=== PATIENT | female | born 1940 | race Caucasian/White ===

== ENCOUNTER 2018-12-15 07:50 | Day surgery (SDC) | payer OTHER ==
[2018-12-15] MEDS ORDERED: LIDOCAINE 2% MPF 5 ML VIAL ONE (08:27)
[2018-12-15] MEDS ORDERED: BUPIVACAINE 0.25% PF 10 ML VIAL ONE (08:28)
[2018-12-15] MEDS ORDERED: NA CHLORIDE 0.9% 500 ML ONE (08:28)
[2018-12-15] MEDS ORDERED: LIDOCAINE HCL/PF 3.5% OPTH GEL ONE (08:28)
[2018-12-15] MEDS ORDERED: TETRACAINE HCL 0.5% 4ML OPTH ONE (08:28)
[2018-12-15] MEDS: CYCLOPENTOLATE 1% OPTH 2 ML ONE ×3 (09:00→09:10)
[2018-12-15] MEDS: PHENYLEPHRINE 10% OPTH 5ML ONE ×3 (09:00→09:10)
[2018-12-15] MEDS ORDERED: NS 0.9% VIAL 10 ML ONE (09:15)
[2018-12-15] MEDS ORDERED: EPINEPHRINE/PF 1 MG/ML AMP ONE (09:16)
[2018-12-15] MEDS ORDERED: DUOVISC 1 KIT OPTH ONE (09:16)
[2018-12-15] MEDS ORDERED: BALANCED SALT IRRIG PLAIN 500 ML BTL IRR ONE (09:16)
[2018-12-15] MEDS ORDERED: LIDOCAINE 1% MPF 2 ML AMPULE ONE (09:16)
[2018-12-15] MEDS ORDERED: MOXIFLOXACIN HCL 10 DROPS/ML **OR USE OPTH ONE (09:16)
[2018-12-15] MEDS ORDERED: TRYPAN BLUE 0.5 ML SYR OPTH ONE (09:20)
[2018-12-15] MEDS ORDERED: BSS OPTHALMIC SOL 15 ML BOT OPTH ONE (09:20)
[2018-12-15] MEDS ORDERED: MIDAZOLAM HCL 2 MG/2 ML INJ ONE (10:28)
--- NOTE | 2018-12-15 11:02 | P.BOP ---
Preoperative diagnosis: Mature cataract OS Postoperative diagnosis: Same Primary procedure: Phacoemulsification with IOL OS - complex with use of Trypan blue Estimated blood loss: None Anesthesia: Local (Topical with anesthesia for cataract surgery) Complications: None Implants: SN60WF +24.0 Transferred to: Other (Day surgery) Condition: Good
--- NOTE | 2018-12-15 22:31 | OP ---
Date of Procedure: 12/15/2018 Surgeon: Eugenia Yip MD Anesthesiologist: Shiraz Bloom CRNA and Bony Mtz MD Preoperative Diagnosis: Mature cataract, left eye. Operation Performed: Phacoemulsification with intraocular lens implant left eye complex with use of trypan blue. Anesthesia: Per cataract surgery. Complications: None. Description Of The Procedure: The patient was prepped and draped in the usual sterile fashion for ophthalmic surgery. A lid speculum was placed in the left eye. There was poor red reflex and a decision was made to use trypan blue. Paracentesis sites were made superiorly and inferiorly in the limbal cornea. Preservative-free 1% lidocaine was placed in the anterior chamber. This was followed by trypan blue and then balanced salt solution was used to rinse out the trypan blue from the eye. Viscoat was placed in the eye. The temporal conjunctiva was cut at the limbus with Derrick scissors. A crescent blade was used to create a tunnel incision in the temporal cornea. A keratome was used to enter the anterior chamber. Provisc was placed in the eye. A 360 degree capsulotomy was performed with a cystitome. The lens was hydrated with balanced salt solution and moved freely. The lens was removed in a stop and chop fashion. 6.31 CDE was required. Irrigation and aspiration were used to remove residual cortex. Provisc was placed in the eye and an SN60WF +24.0 diopter lens was placed in the capsular bag without complications. Irrigation and aspiration were used to remove residual Viscoat. The paracentesis sites were hydrated with balanced salt solution. The wound and paracentesis sites were inspected and found to be watertight. Intracameral Vigamox 0.07 cc was injected at the end of the procedure. The eye was irrigated with balanced salt solution. The eye was patched with a soft cotton patch and Decker metal shield and the patient was returned to day surgery in good condition. Comments: Yesika was placed in the eye in Day Surgery and irrigated out of the eye with BSS in the OR. Discharge Instructions: Ms. Khan is discharged to home in good condition and should be followed up with Dr. Yip in the morning. NIKITA/MODL Voice ID: [id number] Report ID: [id number]
== END 2018-12-15 11:38 | disposition home or self-care (01) ==
LOC: OR 07:50
PROVIDERS: ATTEND Ophthalmology Retina Specialist
PROC: 08RK3JZ Replacement of Left Lens with Synthetic Substitute, Percutaneous Approach (ICD-10-PCS; principal; 2018-12-15 09:40)
DX: H26.8 Other specified cataract (principal); D64.9 Anemia, unspecified; E78.00 Pure hypercholesterolemia, unspecified; E07.9 Disorder of thyroid, unspecified; I10 Essential (primary) hypertension; Z79.899 Other long term (current) drug therapy
CPT/HCPCS: 66984; J0171; J2250; J2001